=== PATIENT | male | born 1985 | race Caucasian/White ===

== ENCOUNTER → 2017-11-14 | Outpatient (CLI) | payer OTHER ==
[~2017-11-14] MED LIST: CEPHALEXIN 500500 M3 PO; FLEXERIL PO; MEDROLDOSEPACK PO; PREDNISONE 10 M10 M1 PO; ZOFRAN ODT4 MG PO
== END ==
LOC: M.ULTRA 07:17
DX: M71.22 Synovial cyst of popliteal space [Baker], left knee (principal)

== ENCOUNTER → 2018-02-21 | Outpatient (CLI) | payer OTHER | LOC: M.RAD 10:52 | DX: M25.571 Pain in right ankle and joints of right foot (principal); G89.4 Chronic pain syndrome; M79.671 Pain in right foot ==

== ENCOUNTER → 2019-05-08 | Outpatient (CLI) | payer OTHER | LOC: M.MRI 05-05 07:30 | DX: S86.311D Strain of muscle(s) and tendon(s) of peroneal muscle group at lower leg level, right leg, subsequent encounter (principal); M76.60 Achilles tendinitis, unspecified leg; M65.871 Other synovitis and tenosynovitis, right ankle and foot; M77.31 Calcaneal spur, right foot; M25.471 Effusion, right ankle; X58.XXXD Exposure to other specified factors, subsequent encounter ==

== ENCOUNTER → 2020-06-15 | Outpatient (CLI) | payer OTHER ==
--- NOTE | 2020-06-24 12:19 | SLEEP ---
[address] [address] SLEEP STUDY REPORT Name: RAUL MONTANO Room: [facility]#: [id number] Admission: 06/15/20 Attend Phys: Gene Olivia MD Discharge: Date of : 83 Report #: [id number] THIS REPORT FOR: //name// CC: Gene Trevino This study has been reviewed in its entirety by a board certified sleep specialist DATE OF SERVICE: 06/15/2020 HOME SLEEP STUDY INDICATION FOR SLEEP STUDY: Hypersomnia. INTERPRETATION: Total duration of the study is 430 minutes. During this time duration, we recorded occasional sleep related respiratory events. These included, 6 obstructive apneas in addition to 24 hypopneas. The overall apnea-hypopnea index is 4.4, which is just below criteria for a diagnosis of obstructive sleep apnea. Body position data indicates that the patient was lying supine for 361 minutes. Rest of the time, the patient was on the right side. Events do appear to be more common when the patient is lying supine. There are some occasional desaturations recorded as well. The patient's O2 saturation, however, is maintained at or above 88% throughout the sleep study. Mean heart rate is 55. IMPRESSION: This home sleep study is consistent with increased upper airway resistance syndrome. The apnea-hypopnea index is 4.4, which is just below criteria for a diagnosis of obstructive sleep apnea. Sleep related respiratory events do appear to be more common when the patient is lying supine. RECOMMENDATIONS: 1. We will correlate clinically. If the suspicion of obstructive sleep apnea remains high, then I will consider a repeat sleep study in the sleep lab for further evaluation. 2. Recommend avoiding sleeping supine and sleeping on sides as much as possible. 3. Recommend avoiding driving or other activities requiring vigilance if drowsy. This entire sleep study was reviewed by board certified sleep physician. <ELECTRONICALLY SIGNED> By: Gene Olivia MD 06/24/20 1219 [id number] Olivia MD /nt
== END ==
LOC: M.PUL 10:00 → M.SLEEPLAB 10:06
PROVIDERS: ATTEND Internal Medicine Critical Care Medicine
DX: G47.19 Other hypersomnia (principal); J45.909 Unspecified asthma, uncomplicated